=== PATIENT | male | born 1955 | race Caucasian/White ===

== ENCOUNTER → 2016-12-08 | Day surgery (SDC) | payer OTHER ==
[~2016-12-08] MED LIST: AMARYL PO; ATORVASTATIN CA10 MG PO; BENAZEPRIL HCL10 M2 PO; BENAZEPRIL PO; LANTUS SOLOSTAR3 ML SUBQ; METFORMIN PO; MEVACOR PO; MULTIPLE VITAMI1 T11 PO; OMEGA 3-6-9 11200 M1 PO; VITAMIN B-1000 MCG/1 INJ; ZOLPIDEM TARTRA10 M1 PO
--- NOTE | ~2016-12-08 | OR ---
Unit #: [id number] #: [id number] Patient: WIL COATES [id number] [address] [id number] O MR#: [id number] NAME: WIL COATES ROOM: Date of Procedure: 12/08/2016 Admission Date: 12/08/2016 Surgeon: Dioni Warner M.D. : 1955 Attending Physician: Dioni Warner M.D. Primary Care Physician: Radha Ang M.D. OPERATIVE REPORT PROCEDURE PERFORMED Colonoscopy with snare polypectomy. INDICATIONS FOR PROCEDURE A 61-year-old gentleman, average risk for colorectal cancer. MEDICATIONS Monitored anesthesia. POSTOPERATIVE FINDINGS 1. Polyp, transverse colon 5 mm, snared and sent for pathology. 2. Rest of the colon to cecum was normal. Prep was poor. Some areas not well visualized despite extensive lavaging. PLAN Repeat colonoscopy in 5 years. DESCRIPTION OF PROCEDURE The patient was explained of the procedure, risks, and benefits along with risks, and benefits of anesthesia. He was brought to the endoscopy room. Propofol anesthesia was given. Rectal exam was done, which was normal. Colonoscope was lubricated, passed up the rectum, advanced under direct vision all the way to cecum. Cecum was identified by ileocecal valve and appendiceal orifice. I then started to pull the scope out carefully looking. Polyp seen in transverse colon was snared and sent for pathology. Rest of the exam was normal. I retroflexed in the rectum, small hemorrhoids seen. Scope was gently pulled out. He tolerated it well. Dictated by... Ian Bailey/etienne TD: 12/08/2016 21:39 JOB #: [id number] Unit #: [id number] #: [id number] Patient: WIL COATES OPERATIVE REPORT X Dioni Warner MD PROCEDURE OPERATIVE NOTE
== END | disposition home or self-care (01) ==
LOC: COPS 09:34
PROVIDERS: Internal Medicine
PROC: 0DBL8ZX Excision of Transverse Colon, Via Natural or Artificial Opening Endoscopic, Diagnostic (ICD-10-PCS; principal; 2016-12-08 12:00)
DX: Z12.11 Encounter for screening for malignant neoplasm of colon (principal); D12.3 Benign neoplasm of transverse colon; K64.9 Unspecified hemorrhoids; K21.9 Gastro-esophageal reflux disease without esophagitis; I10 Essential (primary) hypertension; E78.5 Hyperlipidemia, unspecified; E11.9 Type 2 diabetes mellitus without complications; Z79.84 Long term (current) use of oral hypoglycemic drugs; Z79.899 Other long term (current) drug therapy
CPT/HCPCS: 82947; 88305; J2250